=== PATIENT | male | born 1980 | race Caucasian/White ===

== ENCOUNTER 2021-04-07 07:05 | Emergency (ER) | payer OTHER ==
[~2021-04-07] VITALS: Ht 165.1 cm; Wt 108.9 kg
[2021-04-07 07:10] VITALS: BP 143/91
[2021-04-07] MEDS ORDERED: AMOXICILLIN875 MG PO (07:18)
== END 2021-04-07 07:29 | disposition home or self-care (01) ==
LOC: ER 07:05
DX: H66.91 Otitis media, unspecified, right ear (principal); F17.210 Nicotine dependence, cigarettes, uncomplicated